=== PATIENT | female | born 1990 | race Caucasian/White ===

== ENCOUNTER 2019-04-14 12:23 | Emergency (ER) | payer BC ==
[2019-04-14] MEDS ORDERED: NORMAL SALINE 1000 ML 1,000 ML IV ONE ×2 (13:12→16:30)
[2019-04-14] MEDS ORDERED: ONDANSETRON HCL INJ/PF 4 MG/2 ML SDV IV ONE ×2 (13:12→16:30)
--- NOTE | 2019-04-14 13:12 | ER Document Report ---
ED Medical Screen (RME) - General Chief Complaint: Alcohol Withdrawl Stated Complaint: ALCOHOL WITHDRAWAL Time Seen by Provider: 04/14/19 13:07 Mode of Arrival: Ambulatory Information source: Patient Notes: 28-year-old female presented to ED for alcohol withdrawal. She states her last alcohol was a little bit of wine this morning. She states she is a daily drinker. She says she is having problems with shaky vomiting and just feeling lousy. Significant other is with her and states that he would prefer if she could get medications that she can use at home and he and the family will watch her he is off today and other family is coming in this weekend. We will get blood and urine and have patient seen by another provider. After performing a Medical Screening Examination, I spoke with the patient at length in regards to leaving the hospital against medical advice. I do not believe the patient should leave but the patient is alert oriented x4, understands the risks and benefits of staying and leaving including disability and . Pt understands that he can return at any time for further care and is more than welcome to do so. Pt verbalizes this understanding. - Related Data Allergies/Adverse Reactions: No Known Allergies Allergy (Unverified 04/14/19 13:08) Past Medical History - General Information source: Patient - Social History Cigarette use (# per day): No Frequency of alcohol use: Heavy Drug Abuse: None Lives with: Spouse/Significant other Family history: Reviewed & Not Pertinent GI Medical History: Reports: Hx Gastroesophageal Reflux Disease Psychiatric Medical History: Reports: Hx Anxiety - Panic attacks, Hx Attention Deficit Hyperactivity Disorder Physical Exam - Vital signs Vitals: Temp Pulse Resp BP Pulse Ox 98.4 F 111 H 18 142/96 H 98 04/14/19 12:45 04/14/19 12:45 04/14/19 12:45 04/14/19 12:45 04/14/19 12:45 Course - Vital Signs Vital signs: Temp Pulse Resp BP Pulse Ox 98.4 F 111 H 18 142/96 H 98 04/14/19 12:45 04/14/19 12:45 04/14/19 12:45 04/14/19 12:45 04/14/19 12:45
[2019-04-14] MEDS ORDERED: FAMOTIDINE INJ/PF 20 MG/2 ML SDV IV ONE ×2 (13:13→16:30)
[2019-04-14 13:48] LABS: ABSOLUTE BASOPHILS # (AUTO) 0.1 10^3/uL (0.0-0.2); ABSOLUTE MONOCYTES (AUTO) 0.6 10^3/uL (0.1-1.4); ABSOLUTE NEUT (AUTO) 5.5 10^3/uL (1.7-8.2); EOSINOPHILS % (AUTO) 0.2 % (0-6); HEMATOCRIT 40.1 % (36.0-47.0); HEMOGLOBIN 14.1 g/dL (12.0-15.5); LYMPHOCYTES % (AUTO) 13.4 % (13-45); MEAN CORPUSCULAR HEMOGLOBIN 33.7 pg (27.0-33.4); MEAN CORPUSCULAR HGB CONC 35.1 g/dL (32.0-36.0); MEAN CORPUSCULAR VOLUME 96 fl (80-97); MONOCYTES % (AUTO) 8.9 % (3-13); PLATELET COUNT 185 10^3/uL (150-450); RED BLOOD COUNT 4.18 10^6/uL (3.72-5.28); RED CELL DISTRIBUTION WIDTH 13.2 % (11.5-14.0); SEGMENTED NEUTROPHILS % (AUTO) 76.5 % (42-78); TOTAL CELLS COUNTED % (AUTO) 100 %; WHITE BLOOD COUNT 7.2 10^3/uL (4.0-10.5)
[2019-04-14 13:57] LABS: APPEARANCE,URINE CLEAR; BILIRUBIN,URINE NEGATIVE (NEGATIVE); COLOR,URINE STRAW; GLUCOSE, URINE NEGATIVE (NEGATIVE); KETONES,URINE NEGATIVE (NEGATIVE); PROTEIN,URINE NEGATIVE (NEGATIVE); URINE SPECIFIC GRAVITY 1.009; UROBILINOGEN,URINE NEGATIVE mg/dL (<2.0)
[2019-04-14 14:12] LABS: ALBUMIN 4.2 g/dL (3.5-5.0); ALCOHOL 83 mg/dL (NONE DETECTED); ALKALINE PHOSPHATASE 89 U/L (38-126); ANION GAP 12 (5-19); ASPARTATE AMINO TRANSFERASE 157 U/L (14-36); BILIRUBIN,DIRECT 0.1 mg/dL (0.0-0.4); BILIRUBIN,TOTAL 0.6 mg/dL (0.2-1.3); BLOOD UREA NITROGEN 10 mg/dL (7-20); CALCIUM 10.1 mg/dL (8.4-10.2); CARBON DIOXIDE 25 mmol/L (22-30); CHLORIDE 101 mmol/L (98-107); GLUCOSE 99 mg/dL (75-110); POTASSIUM 3.8 mmol/L (3.6-5.0); TOTAL PROTEIN 7.2 g/dL (6.3-8.2)
[2019-04-14] MEDS ORDERED: LORAZEPAM INJ 2 MG/1 ML VIAL IV ONE (15:53)
[2019-04-14] MEDS ORDERED: THIAMINE HCL 100 MG in NORMAL SALINE 50 ML IV ONE (15:53)
[2019-04-14] MEDS ORDERED: LORAZEPAM 1 MG TABLET PO ONE (19:33)
--- NOTE | 2019-04-14 19:49 | ER Document Report ---
ED Substance Abuse / Acc. OD - General Chief Complaint: Alcohol Withdrawl Stated Complaint: ALCOHOL WITHDRAWAL Time Seen by Provider: 04/14/19 13:07 Primary Care Provider: CHUCK OLIVEIRA MD [ACTIVE STAFF] - Follow up as needed LUIS BOURNE MD [ACTIVE STAFF] - Follow up as needed MARIVEL GUTIERREZ MD [ACTIVE STAFF] - Follow up as needed Mode of Arrival: Ambulatory - HPI Notes: 28-year-old female to the emergency department with complaints of alcohol withdrawal. She states that she has been drinking about a bottle and a half of wine nearly daily for the past several weeks. She does have a history of alcohol abuse in the past and tried to detox about 1 year ago. She states that she is living with her boyfriend and she would like to get started on some treatment so that she can actually withdrawal from home. She admits to her last drink this morning. She states that she is feeling nauseated and has been vomiting. She has a mild headache. She states that she is starting to experience a little bit more tremors in her hands in particular. She denies any confusion. She has never had a seizure with alcohol withdrawal. She denies any SI, HI, hallucinations. - Related Data Allergies/Adverse Reactions: No Known Allergies Allergy (Unverified 04/14/19 13:08) Past Medical History - General Information source: Patient - Social History Smoking Status: Never Smoker Cigarette use (# per day): No Frequency of alcohol use: Heavy Drug Abuse: None Lives with: Spouse/Significant other Family History: Reviewed & Not Pertinent Patient has suicidal ideation: No Patient has homicidal ideation: No GI Medical History: Reports: Hx Gastroesophageal Reflux Disease Psychiatric Medical History: Reports: Hx Anxiety - Panic attacks, Hx Attention Deficit Hyperactivity Disorder Review of Systems - Review of Systems Constitutional: denies: Chills, Fever EENT: No symptoms reported Cardiovascular: denies: Chest pain, Palpitations, Dizziness, Lightheaded, Edema Respiratory: denies: Cough, Short of breath Gastrointestinal: Nausea, Vomiting. denies: Diarrhea Genitourinary: No symptoms reported Musculoskeletal: No symptoms reported Skin: No symptoms reported Neurological/Psychological: See HPI, Tremor Physical Exam - Vital signs Vitals: Temp Pulse Resp BP Pulse Ox 98.4 F 111 H 18 142/96 H 98 04/14/19 12:45 04/14/19 12:45 04/14/19 12:45 04/14/19 12:45 04/14/19 12:45 Interpretation: Tachycardic - General General appearance: Appears well, Alert In distress: None Notes: Slightly tremulous. Otherwise patient in good spirits and open about her alcohol dependence - HEENT Head: Normocephalic, Atraumatic Eyes: Normal Pupils: PERRL - Respiratory Respiratory status: No respiratory distress Chest status: Nontender. No: Accessory muscle use Breath sounds: Normal. No: Rales, Rhonchi, Wheezing Chest palpation: Normal - Cardiovascular Rhythm: Regular Heart sounds: Normal auscultation Murmur: No - Abdominal Inspection: Normal Distension: No distension Bowel sounds: Normal Tenderness: Nontender. No: Tender, McBurney's point, Moore's sign, Guarding, Rebound Organomegaly: No organomegaly - Extremities General upper extremity: Normal inspection, Nontender, Normal color, Normal ROM, Normal temperature General lower extremity: Normal inspection, Nontender, Normal color, Normal ROM, Normal temperature, Normal weight bearing - Neurological Neuro grossly intact: Yes Cognition: Normal Orientation: AAOx4 Marana Coma Scale Eye Opening: Spontaneous Alexandr Coma Scale Verbal: Oriented Alexandr Coma Scale Motor: Obeys Commands Marana Coma Scale Total: 15 Speech: Normal Cranial nerves: Normal. No: Facial palsy, Forehead sparing, Gaze palsy, Sensory deficit, Tongue deviation Cerebellar coordination: Normal Motor strength normal: LUE, RUE, LLE, RLE Additional motor exam normals: Equal spa attendant. No: Pronator drift Sensory: Normal Notes: Mild bilateral hand tremor without asterixis - Psychological Associated symptoms: Normal affect, Normal mood. No: Auditory hallucinations, Confused, Labile, Tactile hallucinations, Visual hallucinations - Skin Skin Temperature: Warm Skin Moisture: Dry Skin Color: Normal Course - Re-evaluation Re-evalutation: 04/16/19 Impression: Alcohol abuse, acute alcohol withdrawal. Patient has done well here in the emergency department is feeling better. Only slightly tremulous now. Heart rate has responded to fluids and Ativan. She has no SI, HI, hallucinations. She is not confused. She would like to attempt alcohol withdrawal at home. She has a very strong support system in place. She lives with her boyfriend who is very aware of the situation and is willing to watch her and her father is visiting from [place] will stay with her for several days and then mom will call. Have encouraged to return if any worsening symptoms in particular if patient has a seizure. I will write for Librium taper and I have advised patient she cannot drink at all on this medicine. She voices understanding and agrees with the plan. - Vital Signs Vital signs: Temp Pulse Resp BP Pulse Ox 98.0 F 111 H 20 129/99 H 99 04/14/19 20:49 04/14/19 13:08 04/14/19 20:49 04/14/19 20:49 04/14/19 20:49 Selected Entries 04/14/19 20:49 Temperature 98.0 F Heart Rate ( 97 Monitors) Respiratory 20 Rate Blood Pressure 129/99 H Blood Pressure 109 Mean O2 Sat by Pulse 99 Oximetry - Laboratory Result Diagrams: 04/14/19 13:26 04/14/19 13:26 Laboratory results interpreted by me: 04/14/19 04/14/19 04/14/19 13:26 13:26 13:26 MCH 33.7 H AST 157 H Urine Blood SMALL H Discharge - Discharge Clinical Impression: Alcohol withdrawal Qualifiers: Complication of substance-induced condition: uncomplicated Qualified Code(s): F10.230 - Alcohol dependence with withdrawal, uncomplicated Alcohol dependence Qualifiers: Substance use status: uncomplicated Qualified Code(s): F10.20 - Alcohol dependence, uncomplicated Condition: Stable Disposition: HOME, SELF-CARE Instructions: Alcohol Withdrawl ([facility]) Additional Instructions: PUSH FLUIDS. TAKE MEDICINES PRESCRIBED. RETURN IF INTRACTABLE VOMITING, VOMITING BLOOD, PASSING OUT, SEIZURES. GO to [email or web address] for AA information. Prescriptions: Sucralfate [Carafate Susp 1 Gm/10 Ml Udcup] 1 gm PO QID #420 ml Chlordiazepoxide HCl [Librium 25 mg Capsule] 1 cap PO ASDIR PRN #25 capsule PRN Reason: Ondansetron [Zofran Odt 4 mg Tablet] 1 - 2 tab PO Q4H PRN #15 tab.rapdis PRN Reason: For Nausea/Vomiting Forms: Return to Work Referrals: CHUCK OLIVEIRA MD [ACTIVE STAFF] - Follow up as needed LUIS BOURNE MD [ACTIVE STAFF] - Follow up as needed MARIVEL GUTIERREZ MD [ACTIVE STAFF] - Follow up as needed
[2019-04-14 20:57] VITALS: BP 129/99
== END 2019-04-14 21:08 | disposition home or self-care (01) ==
LOC: ER 12:23
DX: F10.230 Alcohol dependence with withdrawal, uncomplicated (principal); R11.2 Nausea with vomiting, unspecified; R51 Headache; R25.1 Tremor, unspecified
CPT/HCPCS: 99284; 96361; 96375; 96365; 36415; 80307; 83690; 84703; 85025; 80053; 81001; J2060; J3411; J2405; J7030; S0028

== ENCOUNTER 2019-07-01 12:32 | Emergency (ER) | payer BC ==
[2019-07-01] MEDS ORDERED: NORMAL SALINE 1000 ML 1,000 ML IV ONE (12:39)
[2019-07-01] MEDS ORDERED: SUCRALFATE 1 GM TABLET PO ONE (12:40)
[2019-07-01] MEDS ORDERED: ONDANSETRON HCL INJ/PF 4 MG/2 ML SDV IV ONE (12:40)
--- NOTE | 2019-07-01 12:42 | ER Document Report ---
ED Medical Screen (RME) - General Chief Complaint: Alcohol Withdrawl Stated Complaint: ALCOHOL WITHDRAWL Time Seen by Provider: 07/01/19 12:34 Mode of Arrival: Ambulatory Information source: Patient Notes: 28-year-old female presented to ED for alcohol withdrawal. She was in here in March for similar symptoms and she is afraid that she will go through withdrawals again this time. She states she has drank heavily for the last 11 days. She states she was in here in March she had drank for couple months this time is only been 11 days. She states her last drink was just before comi ng into the emergency room she had a few drinks of wine. She does not smoke and has never smoked but she does occasionally smoke pot. Only medical history is ADHD right arm fracture with surgical repair and wisdom teeth repair. I have greeted and performed a rapid initial assessment of this patient. A comprehensive ED assessment and evaluation of the patient, analysis of test results and completion of medical decision making process will be conducted by an additional ED providers. - Related Data Allergies/Adverse Reactions: No Known Allergies Allergy (Verified 07/01/19 12:39) Past Medical History - Social History Family history: Reviewed & Not Pertinent GI Medical History: Reports: Hx Gastroesophageal Reflux Disease Psychiatric Medical History: Reports: Hx Anxiety - Panic attacks, Hx Attention Deficit Hyperactivity Disorder
[2019-07-01 13:31] LABS: AMORPHOUS SEDIMENT,URINE TRACE /HPF; APPEARANCE,URINE SLIGHTLY-CLOUDY; BILIRUBIN,URINE NEGATIVE (NEGATIVE); COLOR,URINE YELLOW; GLUCOSE, URINE NEGATIVE (NEGATIVE); KETONES,URINE NEGATIVE (NEGATIVE); PROTEIN,URINE NEGATIVE (NEGATIVE); URINE SPECIFIC GRAVITY 1.013; UROBILINOGEN,URINE NEGATIVE mg/dL (<2.0)
[2019-07-01 13:33] LABS: URINE AMPHETAMINES SCREEN NEGATIVE; URINE BARBITURATES SCREEN NEGATIVE; URINE BENZODIAZEPINES SCREEN NEGATIVE; URINE COCAINE SCREEN NEGATIVE; URINE MARIJUANA (THC) SCREEN NEGATIVE; URINE METHADONE SCREEN NEGATIVE; URINE PHENCYCLIDINE SCREEN NEGATIVE
[2019-07-01 13:50] LABS: ABSOLUTE LYMPHOCYTES (AUTO) 1.3 10^3/uL (0.5-4.7); ABSOLUTE MONOCYTES (AUTO) 0.4 10^3/uL (0.1-1.4); ABSOLUTE NEUT (AUTO) 10.3 10^3/uL (1.7-8.2); BASOPHILS % (AUTO) 0.3 % (0-2); EOSINOPHILS % (AUTO) 0.1 % (0-6); HEMATOCRIT 40.7 % (36.0-47.0); HEMOGLOBIN 14.5 g/dL (12.0-15.5); LYMPHOCYTES % (AUTO) 10.9 % (13-45); MEAN CORPUSCULAR HEMOGLOBIN 32.8 pg (27.0-33.4); MEAN CORPUSCULAR HGB CONC 35.5 g/dL (32.0-36.0); MEAN CORPUSCULAR VOLUME 92 fl (80-97); MONOCYTES % (AUTO) 3.7 % (3-13); PLATELET COUNT 254 10^3/uL (150-450); RED BLOOD COUNT 4.41 10^6/uL (3.72-5.28); RED CELL DISTRIBUTION WIDTH 12.3 % (11.5-14.0); TOTAL CELLS COUNTED % (AUTO) 100 %; WHITE BLOOD COUNT 12.1 10^3/uL (4.0-10.5)
[2019-07-01 14:08] LABS: ALBUMIN 4.5 g/dL (3.5-5.0); ALCOHOL 87 mg/dL (NONE DETECTED); ALKALINE PHOSPHATASE 77 U/L (38-126); ANION GAP 11 (5-19); ASPARTATE AMINO TRANSFERASE 70 U/L (14-36); BILIRUBIN,TOTAL 0.8 mg/dL (0.2-1.3); BLOOD UREA NITROGEN 8 mg/dL (7-20); CALCIUM 9.5 mg/dL (8.4-10.2); CARBON DIOXIDE 25 mmol/L (22-30); CHLORIDE 104 mmol/L (98-107); GLUCOSE 89 mg/dL (75-110); POTASSIUM 4.3 mmol/L (3.6-5.0); TOTAL PROTEIN 7.4 g/dL (6.3-8.2)
[2019-07-01 14:09] LABS: ACETAMINOPHEN < 10 ug/mL (10-30)
--- NOTE | 2019-07-01 14:52 | ER Document Report ---
ED Substance Abuse / Acc. OD - General Chief Complaint: Alcohol Withdrawl Stated Complaint: ALCOHOL WITHDRAWL Time Seen by Provider: 07/01/19 12:34 Primary Care Provider: KRISTIN BLACKMON FNP-C [Primary Care Provider] - Follow up as needed Mode of Arrival: Ambulatory Notes: This 28-year-old woman presents to the emergency department with a history of alcohol abuse and alcohol withdrawal syndrome. States that she has been drinking heavily for the past 11 days and wants to quit. She is afraid that she will have alcohol withdrawal. She took her last drink at approximately 11:00 this morning. She does have alcohol in the household and her is here stating that he is going to support her and attempting to detox as an outpatient. TRAVEL OUTSIDE OF THE [place] IN LAST 30 DAYS: No - Related Data Allergies/Adverse Reactions: No Known Allergies Allergy (Verified 07/01/19 12:39) Home Medications: adderall Past Medical History - General Information source: Patient - Social History Smoking Status: Never Smoker Chew tobacco use (# tins/day): No Frequency of alcohol use: Heavy Drug Abuse: Marijuana Family History: Reviewed & Not Pertinent Patient has suicidal ideation: No Patient has homicidal ideation: No GI Medical History: Reports: Hx Gastroesophageal Reflux Disease Psychiatric Medical History: Reports: Hx Anxiety - Panic attacks, Hx Attention Deficit Hyperactivity Disorder Past Surgical History: Reports: Hx Oral Surgery - [facility], Hx Orthopedic Surgery - rt elbow pin 4y/o Review of Systems - Review of Systems Notes: Constitutional: Negative for fever. HENT: Negative for sore throat. Eyes: Negative for visual changes. Cardiovascular: Negative for chest pain. Respiratory: Negative for shortness of breath. Gastrointestinal: Negative for abdominal pain, vomiting or diarrhea. Genitourinary: Negative for dysuria. Musculoskeletal: Negative for back pain. Skin: Negative for rash. Neurological: + Shakiness 10 point ROS negative except as marked above and in HPI. Physical Exam - Vital signs Vitals: Temp Pulse Resp BP Pulse Ox 98.1 F 101 H 16 143/101 H 97 07/01/19 12:35 07/01/19 12:35 07/01/19 12:35 07/01/19 12:35 07/01/19 12:35 - Notes Notes: PHYSICAL EXAMINATION: Physical Exam: General: Well-nourished well-developed 28-year-old woman in no acute distress HEENT: NC/AT, pupils equal round and reactive to light, MM moist,nares clear, or opharynx clear, airway patent Neck: supple, no adenopathy, no masses. Good range of motion Lungs: clear, no wheezing, no rales no rhonchi CVS: Regular rate and rhythm no murmur gallop or rub Abdomen: Soft, active, nontender, no masses, no hepatosplenomegaly Ext: No edema, clubbing or cyanosis. Neuro: Alert and responsive, moving all 4 extremities on command, cranial nerves intact, no focal findings Skin: Intact no open lesions, no rash PSYCH: Normal mood, normal affect. Course - Re-evaluation Re-evalutation: 07/01/19 15:01 Patient denies auditory or visual hallucinations, does have some shakiness and anxiety with regards to possible alcohol withdrawal. She is given a prescription for Carafate, and a short course of Librium with the explanation to her that if she experiences withdrawal for greater than 72 hours she will have to be seen in the emergency department for further treatment plans. Sucralfate [Carafate Susp 1 Gm/10 Ml Udcup] 1 gm PO QID #420 ml Chlordiazepoxide HCl [Librium 25 mg Capsule] 1 cap PO ASDIR PRN #20 capsule PRN Reason: Alcohol withdrawal Ondansetron [Zofran Odt 4 mg Tablet] 1 - 2 tab PO Q4H PRN #15 tab.rapdis PRN Reason: For Nausea/Vomiting - Vital Signs Vital signs: Temp Pulse Resp BP Pulse Ox 98.1 F 101 H 15 124/95 H 100 07/01/19 12:35 07/01/19 12:35 07/01/19 14:02 07/01/19 14:02 07/01/19 14:02 - Laboratory Result Diagrams: 07/01/19 13:28 07/01/19 13:28 Laboratory results interpreted by me: 07/01/19 07/01/19 13:28 13:28 WBC 12.1 H Lymph % (Auto) 10.9 L Absolute Neuts (auto) 10.3 H Seg Neutrophils % 85.0 H AST 70 H ALT 38 H Acetaminophen < 10 L Discharge - Discharge Clinical Impression: Alcohol abuse Alcohol withdrawal Qualifiers: Complication of substance-induced condition: with unspecified complication Qualified Code(s): F10.239 - Alcohol dependence with withdrawal, unspecified Condition: Good Disposition: HOME, SELF-CARE Instructions: Alcohol Withdrawl ([facility]) Additional Instructions: You have been sent home on medication to help withdraw from alcohol. You should only start taking this medication and discontinue alcohol if you are seroius about quitting alcohol. This will not completely remove all your symptoms from withdrawal should make it so that your symptoms are more manageable. You need to return to the emergency room immediately if you pass out, or vomiting so severely your unable to keep anything down, start hallucinate, or have any other symptoms that are of concern to you. You need to go to an inpatient program and should speak with your primary care doctor regarding these resources. How to take the librium to come off alcohol. DO NOT DRINK ANY ALCOHOL WHILE USING THIS MEDICATION Day 1-3: 25mg PO TID Day 4-6: 25mg PO bid Day 7-9: 25mg daily as needed Prescriptions: Sucralfate [Carafate Susp 1 Gm/10 Ml Udcup] 1 gm PO QID #30 udc Chlordiazepoxide HCl 25 mg PO ASDIR PRN #20 capsule PRN Reason: Ondansetron [Zofran Odt 4 mg Tablet] 1 - 2 tab PO Q4H PRN #15 tab.rapdis PRN Reason: For Nausea/Vomiting Referrals: KRISTIN BLACKMON PET TECHNOLOGIST-C [Primary Care Provider] - Follow up as needed
[2019-07-01 15:47] VITALS: BP 120/87
== END 2019-07-01 15:47 | disposition home or self-care (01) ==
LOC: ER 12:32
DX: F10.239 Alcohol dependence with withdrawal, unspecified (principal); F41.9 Anxiety disorder, unspecified; F12.10 Cannabis abuse, uncomplicated; F90.9 Attention-deficit hyperactivity disorder, unspecified type; Z79.899 Other long term (current) drug therapy
CPT/HCPCS: 99284; 96361; 96374; 36415; 80307 ×3; 83690; 84703; 85025; 80053; 81001; J2405; J7030